=== PATIENT | male | born 1955 | race Caucasian/White ===

== ENCOUNTER → 2019-10-15 | Outpatient (CLI) | payer MEDICARE, OTHER ==
--- NOTE | 2019-10-15 11:19 | KCIC ---
LUMBAR SPINE WO CONTRAST Date: 10/15/2019 8:00 AM Indication: Low back pain with right lower extremity radiculopathy Comparison: None. Technique: Multi-planar multi-weighted magnetic resonance imaging of the lumbar spine was performed without intravenous contrast using the standard lumbar spine protocol. FINDINGS: The lumbar spine is normally aligned. No acute fracture. Mild multilevel degenerative disc desiccation and disc height loss. Fatty degenerative endplate changes at L4-5. The conus terminates at a normal level. No abnormal signal is seen within the visualized distal spinal cord. No clumping of intrathecal nerve roots. Right nephrectomy. T12-L1: No disc bulge. No facet arthropathy. No significant spinal stenosis or neural foraminal narrowing. L1-L2: Disc bulge. Mild facet arthropathy. No significant spinal stenosis. Mild bilateral neural foraminal narrowing. L2-L3: Disc bulge. Mild facet arthropathy. No significant spinal stenosis. Mild bilateral neural foraminal narrowing. L3-L4: Disc bulge. Moderate facet arthropathy. No significant spinal stenosis. Mild right lateral recess narrowing. Moderate right and mild left neural foraminal narrowing. L4-L5: Disc bulge with annular tear. Severe facet arthropathy. Mild spinal stenosis. Moderate right and mild left lateral recess narrowing. Severe right and mild left neural foraminal narrowing, with compression of the exiting right L4 nerve root. L5-S1: Disc bulge. Mild to moderate facet arthropathy. No significant spinal stenosis or neural foraminal narrowing. IMPRESSION: Lumbar spondylosis, detailed level by level above. Of note, there is severe right neural foraminal narrowing at L4-5 with compression of the exiting right L4 nerve root. Correlate for right L4 radiculopathy. Electronically signed by: Farrukh Goins MD (10/15/2019 11:16 AM) [facility]
== END | disposition home or self-care (01) ==
LOC: KCIC MRI 08:00
PROVIDERS: ATTEND Neurological Surgery
DX: M51.17 Intervertebral disc disorders with radiculopathy, lumbosacral region (principal); M48.061 Spinal stenosis, lumbar region without neurogenic claudication; M47.26 Other spondylosis with radiculopathy, lumbar region; M12.88 Other specific arthropathies, not elsewhere classified, other specified site
CPT/HCPCS: 72148

== ENCOUNTER → 2019-10-16 | Outpatient (CLI) | payer MEDICARE, OTHER ==
--- NOTE | 2019-10-16 13:12 | KCIC ---
MRI right shoulder without contrast dated 10/16/2019. No comparison available. CLINICAL INDICATION: Right shoulder pain. TECHNIQUE: Routine multiplanar multisequence MR imaging performed. FINDINGS: Study is limited due to motion artifact. Marked signal abnormality throughout the supraspinatus, infraspinatus and subscapularis tendons consistent with moderate to severe tendinosis. Articular and bursal surface fraying of the anterior supraspinatus plate results in moderate to high-grade partial tear with a few thin fibers that remain intact. No definite full-thickness tear or cuff retraction. Abnormal signal of the subscapularis with moderate to high-grade partial tearing of its upper margin. There is intermediate signal within the long head biceps tendon proximally. Extra articular portion courses within the bicipital groove. Moderate hypertrophic change of the AC joint. Mild undersurface spurring of the acromium. The acromium is type I morphology. Small amount of subacromial/subdeltoid bursal fluid. Glenoid labrum is not well evaluated but grossly intact. No apparent labral tear or para labral cyst. No focal glenoid cartilage defect. There is a small glenohumeral joint effusion. Suprascapular and spinoglenoid notches are clear. No significant muscle edema or muscle atrophy. IMPRESSION: 1. Moderate to severe rotator cuff tendinosis with suspected high-grade partial tear of the supraspinatus footplate. 2. Moderate biceps tendinopathy. 3. AC joint arthropathy with mild undersurface spurring. 4. No apparent labral tear. Electronically signed by: Itz Fleming MD (10/16/2019 1:09 PM) [facility]
--- NOTE | 2019-10-16 15:08 | KCIC ---
MRI right knee without contrast dated 10/16/2019. No comparison available. CLINICAL INDICATION: Right knee pain. TECHNIQUE: Routine multiplanar multisequence MR imaging performed. FINDINGS: Bone marrow signal is homogeneous. No marrow edema. Mild tricompartmental hypertrophic change with small marginal osteophytes. Thinning and surface irregularity of the articular cartilage throughout. No full-thickness cartilage defect of the medial or lateral compartments. There is full-thickness cartilage loss of the medial and lateral patellar facet and patellar apex. Small joint effusion. No intra-articular loose body. No significant popliteal cyst. There is some globular areas of heterogeneous signal along the medial and lateral joint capsule could represent areas of synovial thickening. Anterior cruciate ligament is intact. The PCL is intact, however there is some increased signal in the ligament substance. Medial and lateral collateral complexes are grossly intact. There is edema along the superficial and deep margins of the MCL. Popliteus tendon is poorly visualized at its femoral attachment and there is some globular increased signal along the lateral margin of the distal femur. Quadriceps and patellar tendon are intact. No abnormality of the medial or lateral retinaculum. Both menisci are normal in morphology. No articular surface tear or para meniscal cyst. IMPRESSION: 1. No evidence of internal derangement. 2. Small joint effusion with globular areas of heterogeneous signal along the medial and lateral joint capsule suggestive of synovial thickening and/or debris. Consider inflammatory arthropathy or other causes of synovitis. If indicated, postcontrast imaging could provide additional information. 3. There is globular increased signal within the substance of the PCL could be related to mucoid degeneration and/or synovial proliferative process. Intrasubstance partial tearing not excluded 4. Mild tricompartmental degenerative arthrosis and chondromalacia. There is full-thickness cartilage loss at the anterior compartment Electronically signed by: Itz Flmeing MD (10/16/2019 3:04 PM) [facility]
== END | disposition home or self-care (01) ==
LOC: KCIC MRI 11:38
PROVIDERS: ATTEND Orthopaedic Surgery
DX: M94.261 Chondromalacia, right knee (principal); M17.11 Unilateral primary osteoarthritis, right knee; M25.761 Osteophyte, right knee; M19.011 Primary osteoarthritis, right shoulder; M25.411 Effusion, right shoulder; M75.101 Unspecified rotator cuff tear or rupture of right shoulder, not specified as traumatic
CPT/HCPCS: 73221; 73721

== ENCOUNTER → 2019-11-13 | Outpatient (CLI) | payer MEDICARE, OTHER ==
--- NOTE | 2019-11-13 12:01 | KCIC ---
MR of the left shoulder HISTORY: Impingement syndrome. Progressive pain. TECHNIQUE: Routine multiplanar sequences are obtained. FINDINGS: Moderate motion degradation. The acromioclavicular joint is degenerative with undersurface mass effect. Rotator cuff tendinosis. Ill-definition of the articular surface of the supraspinatus and infraspinatus tendon compatible with partial tearing, but difficult to accurately determine depth due to the motion. No evidence of a complete through and through full-thickness rupture, however. Partial tearing of the subscapularis tendon. Trace joint effusion. Limited labrum exam due to the motion. Heterogeneity of the superior labrum could be a tear, or artifact due to the motion. Biceps tendinosis. No acute fracture. No aggressive bone destruction. IMPRESSION: 1. Moderate motion degradation. 2. Rotator cuff tendinosis with partial tearing. No evidence of a full-thickness rupture or retraction. 3. Superior labral tear versus motion degradation artifact. 4. Biceps tendinosis. Electronically signed by: Itz Finley MD (11/13/2019 11:58 AM) [facility]
== END | disposition home or self-care (01) ==
LOC: KCIC MRI 08:11
PROVIDERS: ATTEND Orthopaedic Surgery
DX: S46.012A Strain of muscle(s) and tendon(s) of the rotator cuff of left shoulder, initial encounter (principal); M75.42 Impingement syndrome of left shoulder; M25.412 Effusion, left shoulder; X58.XXXA Exposure to other specified factors, initial encounter; Y93.89 Activity, other specified; Y92.89 Other specified places as the place of occurrence of the external cause; Y99.8 Other external cause status
CPT/HCPCS: 73221

== ENCOUNTER → 2020-07-21 | Outpatient (CLI) | payer MEDICARE, OTHER ==
--- NOTE | 2020-07-21 11:00 | KCIC ---
STUDY: MRI of the left shoulder without contrast INDICATION: Shoulder pain status post interval rotator cuff repair. Decreased range of motion. COMPARISON: 11/13/2019 TECHNIQUE: Multiplanar MR imaging of the left shoulder performed without the use of intravenous or intra-articular contrast. FINDINGS: Mild motion degradation. AC joint: Status post distal clavicular resection and subacromial decompression. No significant fluid distention of the subacromial subdeltoid bursa to suggest bursitis. Rotator cuff: Sequela of interval rotator cuff repair. No high-grade or full-thickness supraspinatus tear is identified. More conspicuous from the comparison is either a thin articular sided or interstitial tear of the infraspinatus at the insertion such as seen on image 7 series 8 which involves 25 percent or less tendon cross-sectional thickness and measures around 2 mm mediolateral by 7 mm. The teres minor is intact. Redemonstrated subscapularis tendinosis without a high-grade or full-thickness tear. No significant rotator cuff muscular atrophy/fatty infiltration. No muscular edema. Labrum: The superior aspect of the labrum is no longer well delineated in the setting of long head biceps tenodesis. The lower half of the labrum is unchanged. Long head biceps tendon: Long head biceps takedown and tenodesis. The tendon remains visualized as it extends down the humeral shaft. The associated suture anchor appears normally fixated. Cartilage: Partial thickness chondrosis at the inferomedial humeral head. Bones: No acute fracture or aggressive marrow signal abnormality. Miscellaneous: No significant effusion with only a small volume amount of joint and subscapular recess fluid. Unremarkable axillary soft tissues. Impression: 1. Interval subacromial decompression/distal clavicular resection, rotator cuff repair and long head biceps tenodesis. No high-grade or full-thickness rotator cuff tear is identified. There is a more conspicuous thin/low-grade either interstitial or articular sided tear of the infraspinatus at the footprint (image 7 series 8). 2. Absence of the superior labrum where the long head biceps has been released. No evidence for complications involving the tenodesed tendon. Electronically signed by: BOBBY CORDOBA MD (07/21/2020 10:57 AM) [id number]
== END ==
LOC: KCIC MRI 07:51
PROVIDERS: ATTEND Orthopaedic Surgery
DX: Z98.890 Other specified postprocedural states (principal)
CPT/HCPCS: 73221

== ENCOUNTER → 2021-03-15 | Outpatient (CLI) | payer MEDICARE, OTHER ==
--- NOTE | 2021-03-15 09:02 | KCIC ---
Examination: MRI of the left knee without contrast HISTORY: History of posterior lateral knee pain COMPARISON: None available Technique: Multiplanar multisequence MR imaging of the left knee was performed without contrast FINDINGS: The anterior cruciate ligament appears intact. There is increased T2 signal identified in the posteri or cruciate ligament with thickening of the posterior cruciate ligament measuring 1.2 cm, could be pa rtial or interstitial tear/interspersed scar tissue.. Multilocular cystic structure measuring 1.7 cm, and the proximal portion of the anterior cruciate ligament probably ganglion cyst. The medial meniscus, lateral meniscus appears intact. The medial collateral appears intact. The fibular collateral ligament, biceps femoris tendon appears intact. There is increased T2 signal identified in popliteal tendon could be severe tendinosis or chronic tea r.. The extensor mechanism appears intact. There is deep fissuring of cartilage and patellofemoral compartment. There is mild superficial frayin g of cartilage identified in the medial, lateral compartment. Trace popliteal cyst. Mild joint space loss medial, lateral and patellofemoral compartments. IMPRESSION: 1. Increased T2 signal identified in the posterior cruciate ligament with thickening of the posterio r cruciate ligament measuring 1.2 cm, could be partial or interstitial tear/interspersed scar tissue. 2. Increased T2 signal identified in popliteal tendon could be severe tendinosis or chronic tear. 3. 1.7 cm ganglion cyst identified in the proximal portion of the anterior cruciate ligament and the proximal portion of the anterior cruciate ligament. 4. Grade II chondromalacia medial, lateral and patellofemoral compartments. Electronically signed by: Dann Javed MD (03/15/2021 8:59 AM) [id number]
== END ==
LOC: KCIC MRI 08:01
PROVIDERS: ATTEND Physician Assistant
DX: M94.262 Chondromalacia, left knee (principal); M67.462 Ganglion, left knee
CPT/HCPCS: 73721